=== PATIENT | female | born 1995 ===

== ENCOUNTER 2018-04-09 22:47 | Emergency (ER) | END 2018-04-10 01:30 | disposition left against medical advice (07) ==

== ENCOUNTER 2018-05-09 12:44 | Emergency (ER) | payer OTHER ==
[~2018-05-09] VITALS: Ht 167.6 cm; Wt 66.9 kg
[2018-05-09 12:47] VITALS: Ht 167.6 cm; Wt 66.9 kg
--- NOTE | 2018-05-09 14:50 | ERD ---
ER Documentation Chief Complaint Chief Complaint Complains of abdominal pain x 3 days HPI 22-year-old female, with a EGA of 16 weeks and 5 days, presents the emergency department, complaining of 2 days with intermittent, colicky, cramping pelvic pain, associated with diarrhea, x3 today, no blood, no mucus. The patient denies fevers, no chills, no history of recent traveling. No suspicious food. The patient denies nausea or vomiting. ROS All systems reviewed and are negative except as per history of present illness. Medications Home Meds Active Scripts Acetaminophen* (Tylenol*) 325 Mg Tablet, 2 TAB PO Q8 PRN for PAIN AND OR ELEVATED TEMP, #20 TAB Prov:SAPPHIRE FERREIRA MD 05/09/18 Allergies Allergies: Coded Allergies: No Known Allergy (Unverified , 04/09/18) Physical Exam Vitals Vital Signs Date Temp Pulse Resp B/P (MAP) Pulse Ox O2 O2 Flow FiO2 Time Delivery Rate 05/09/18 98.5 75 18 117/56 98 Room Air 16:10 (76) 05/09/18 98.6 80 20 117/61 98 12:47 (79) Physical Exam Const: No acute distress Head: Atraumatic Eyes: Normal Conjunctiva ENT: Normal External Ears, Nose and Mouth. Neck: Full range of motion. No meningismus. Resp: Clear to auscultation bilaterally Cardio: Regular rate and rhythm, no murmurs Abd: Soft, non tender, non distended. Normal bowel sounds Skin: No petechiae or rashes Back: No midline or flank tenderness Ext: No cyanosis, or edema Neur: Awake and alert Psych: Normal Mood and Affect Result Diagram: 05/09/18 1507 05/09/18 1507 Results 24 hrs Laboratory Tests Test 05/09/18 15:07 White Blood Count 9.2 10^3/ul Red Blood Count 3.93 10^6/ul Hemoglobin 12.2 g/dl Hematocrit 36.1 % Mean Corpuscular Volume 91.9 fl Mean Corpuscular Hemoglobin 31.0 pg Mean Corpuscular Hemoglobin Concent 33.8 g/dl Red Cell Distribution Width 12.1 % Platelet Count 251 10^3/UL Mean Platelet Volume 11.1 fl Immature Granulocytes % 0.700 % Neutrophils % 66.1 % Lymphocytes % 23.8 % Monocytes % 8.0 % Eosinophils % 1.2 % Basophils % 0.2 % Nucleated Red Blood Cells % 0.0 /100WBC Immature Granulocytes # 0.060 10^3/ul Neutrophils # 6.1 10^3/ul Lymphocytes # 2.2 10^3/ul Monocytes # 0.7 10^3/ul Eosinophils # 0.1 10^3/ul Basophils # 0.0 10^3/ul Nucleated Red Blood Cells # 0.0 10^3/ul Urine Color YELLOW Urine Clarity SLIGHTLY CLOUDY Urine pH 7.0 Urine Specific [place] 1.010 Urine Ketones NEGATIVE mg/dL Urine Nitrite NEGATIVE mg/dL Urine Bilirubin NEGATIVE mg/dL Urine Urobilinogen NEGATIVE mg/dL Urine Leukocyte Esterase NEGATIVE Inder/ul Urine Microscopic RBC 1 /HPF Urine Microscopic WBC 2 /HPF Urine Squamous Epithelial Cells MODERATE /HPF Urine Hemoglobin NEGATIVE mg/dL Urine Glucose NEGATIVE mg/dL Urine Total Protein NEGATIVE mg/dl Sodium Level 137 mmol/L Potassium Level 3.8 mmol/L Chloride Level 106 mmol/L Carbon Dioxide Level 25 mmol/L Anion Gap 6 Blood Urea Nitrogen 6 mg/dl Creatinine 0.47 mg/dl Est Glomerular Filtrat Rate mL/min > 60 mL/min Glucose Level 81 mg/dl Calcium Level 9.2 mg/dl Total Bilirubin 0.1 mg/dl Direct Bilirubin 0.00 mg/dl Indirect Bilirubin 0.1 mg/dl Aspartate Amino Transf (AST/SGOT) 23 IU/L Alanine Aminotransferase (ALT/SGPT) 15 IU/L Alkaline Phosphatase 71 IU/L Total Protein 7.8 g/dl Albumin 3.9 g/dl Globulin 3.90 g/dl Albumin/Globulin Ratio 1.00 Lipase 137 U/L DIAGNOSTIC IMAGING REPORT Patient: TUSHAR CABRERA : 1995 Age: 22 Sex: F MR #: [id number] DOS: 05/09/18 1445 Ordering MD: SAPPHIRE FERREIRA MD Location: E Room/Bed: PROCEDURE: Real Time Sonogram. 05/09/20182:53 PM CLINICAL INDICATION: 16wk Preg w/ pelvic pain TECHNIQUE: This procedure was performed on a high-resolution real time Unit using a endovaginal probe. COMPARISON: None FINDINGS: Presentation: Breech the spine variable from right to left. Cervical Length: Not measured. Placental Location: Anterior, grade 1. Anali cental Previa: No evidence of abruption or placenta previa. Body limb and cardiac motion: Yes. Heart rate: 166 beats per minute. Amniotic fluid volume: Normal. Measured data: BPD: 3.8 cm 17 weeks 5 days. HC: 13.6 cm 17 weeks 0 days. AC: 11.14 cm. 17 weeks 0 days. FC: 2.29 cm 16 weeks 6 days. AUA: 17 weeks 1 day plus or minus 1 week 1 day. LILLI (AUA): 10/16/2018. Serial scan estimated menstrual age: Not calculated. weight: 176 g plus or minus 26.4 g. Endovaginal imaging utilized:Yes Additional findings:None IMPRESSION: 1. A single living fetus is identified presenting breech. 2. AUA: 17 weeks 1 day plus or minus 1 week 1 day. 3. Anterior grade 1 placenta. No evidence of abruption or placenta previa. RPTAT:AAJJ Physician Jeffry Date Time Electronically viewed and signed by Hai Alexander Physician on 05/09/2018 15:27 JM/ CC: SAPPHIRE FERREIRA MD [id number] Procedures/MDM Vital signs stable. Differential diagnosis considered include UTI, cystitis, abruptio, appendicitis, ruptured ovarian cyst, kidney stone. Less likely acute abdomen but is still a possibility. During the ED course the patient remained stable, no new complaints. Results and clinical impression discussed with the patient who agrees with management. The patient is stable to be treated outpatient and will be discharged home. Follow up with the primary care provider in the next 48h has been recommended. If symptoms persist, worsen or new symptoms develop, then patient should return to the ED immediately. Instructions explained and given directly by me to the patient with acknowledgment and demonstrated understanding. Disclaimer: Inadvertent spelling and grammatical errors are likely due to EHR/dictation software use and do not reflect on the overall quality of patient care. Also, please note that the electronic time recorded on this note does not necessarily reflect the actual time of the patient encounter. Departure Diagnosis: Primary Impression: Pelvic pain affecting in second trimester, antepartum Additional Impression: with 17 completed weeks gestation Condition: Stable Additional Instructions: Thank you very much for allowing us to participate in your care. Your health and safety is our top priority at [facility]. Call your primary care doctor TOMORROW for an appointment during the next 2-4 days and bring all the information and medications prescribed. Have prescriptions filled and follow precisely the directions on the label. If the symptoms get worse and your provider is unavailable, return to the Emergency Department immediately. SAPPHIRE FERREIRA MD May 09, 2018 14:50
[2018-05-09] MEDS ORDERED: ACET325T33 PO (15:57)
[2018-05-09 16:10] VITALS: BP 117/56; PULSE 75; RESP 18
== END 2018-05-09 16:09 | disposition home or self-care (01) ==
LOC: FTE 12:44
DX: O26.892 Other specified pregnancy related conditions, second trimester (principal); R10.2 Pelvic and perineal pain; Z3A.17 17 weeks gestation of pregnancy
CPT/HCPCS: 76805; 80053; 81001; 83690; 85025; Z7502; 81003